=== PATIENT | female | born 1990 | race Caucasian/White ===

== ENCOUNTER 2022-05-25 11:37 | Outpatient (CLI) | payer OTHER | END 2022-05-25 11:39 | disposition home or self-care (01) | LOC: RAD 11:37 | PROVIDERS: ATTEND Orthopaedic Surgery | DX: M79.672 Pain in left foot (principal) ==

== ENCOUNTER 2022-09-24 18:21 | Emergency (ER) | payer OTHER ==
[~2022-09-24] VITALS: Ht 188 cm; Wt 88.5 kg
== END 2022-09-24 21:17 | disposition home or self-care (01) ==
LOC: ER 18:21
DX: S13.4XXA Sprain of ligaments of cervical spine, initial encounter (principal); V49.9XXA Car occupant (driver) (passenger) injured in unspecified traffic accident, initial encounter; Y93.9 Activity, unspecified; Y92.89 Other specified places as the place of occurrence of the external cause; Y99.9 Unspecified external cause status